=== PATIENT | female | born 1975 | race Caucasian/White ===

== ENCOUNTER 2017-02-01 06:59 | Emergency (ER) | payer MEDICAID ==
[~2017-02-01] VITALS: Ht 162.6 cm; Wt 73.5 kg
[2017-02-01 07:03] VITALS: Ht 162.6 cm; Wt 73.5 kg
[2017-02-01 07:45] LABS: ADD SCAN DIFF NO
[2017-02-01 07:47] LABS: BASOPHILS % 0.4 % (0.0-2.0); EOSINOPHILS # 0.1 10^3/ul (0.0-0.5); EOSINOPHILS % 1.7 % (0.0-7.0); HEMATOCRIT 39.3 % (37.0-47.0); HEMOGLOBIN 13.4 g/dl (12.0-16.0); LYMPHOCYTES # 1.2 10^3/ul (0.8-2.9); LYMPHOCYTES % 24.4 % (15.0-51.0); MEAN CORPUSCULAR HEMOGLOBIN 30.7 pg (29.0-33.0); MEAN CORPUSCULAR HGB CONC 34.1 g/dl (32.0-37.0); MEAN CORPUSCULAR VOLUME 90.1 fl (82.0-101.0); MEAN PLATELET VOLUME 10.9 fl (7.4-10.4); MONOCYTE # 0.4 10^3/ul (0.3-0.9); MONOCYTES % 8.5 % (0.0-11.0); NEUTROPHIL # 3.1 10^3/ul (1.6-7.5); NEUTROPHILS % 64.8 % (39.0-77.0); PLATELET COUNT 163 10^3/UL (140-415); RED BLOOD COUNT 4.36 10^6/ul (4.20-5.40); RED CELL DISTRIBUTION WIDTH 11.9 % (11.5-14.5); WHITE BLOOD COUNT 4.8 10^3/ul (4.8-10.8)
[2017-02-01 07:57] LABS: ADD UMIC NO; URINE BILIRUBIN (Dip) NEGATIVE (NEGATIVE); URINE BLOOD (Dip) NEGATIVE (NEGATIVE); URINE COLOR LT. YELLOW (YELLOW); URINE GLUCOSE (Dip) NEGATIVE (NEGATIVE); URINE KETONES (Dip) NEGATIVE (NEGATIVE); URINE LEUKOCYTE ESTERASE (Dip) NEGATIVE (NEGATIVE); URINE NITRITE (Dip) NEGATIVE (NEGATIVE); URINE TOTAL PROTEIN (Dip) NEGATIVE (NEGATIVE); URINE UROBILINOGEN (Dip) 0.2 E.U./dL (0.1-1.0)
[2017-02-01 08:15] LABS: ALBUMIN 4.9 g/dl (3.3-4.9); ALBUMIN/GLOBULIN RATIO 1.58; BILIRUBIN,INDIRECT 0.5 mg/dl (0-1.1); BILIRUBIN,TOTAL 0.5 mg/dl (0.2-1.3); CALCIUM 10.1 mg/dl (8.4-10.2); CREATININE 0.59 mg/dl (0.44-1.00); POTASSIUM 3.5 mmol/L (3.5-5.1)
--- NOTE | 2017-02-01 08:39 | RADRPT ---
PROCEDURE: US Pelvis. CLINICAL INDICATION: pelvic pain TECHNIQUE: Multiple sonographic images of the pelvis were obtained utilizing a transabdominal and endovaginal technique. The images were reviewed on a PACS workstation. COMPARISON: None. FINDINGS: The uterus is normal in size with a heterogeneous appearance of the myometrium. The uterus measures 7.6 x 4.3 x 5.2 cm. The endometrial stripe is homogeneous in appearance and has the thickness of 10 mm. The ovaries are normal in size and echogenicity. Normal Doppler flow is identified in both ovaries. The right ovary measures 3.0 x 1.7 x 1.4 cm. The left ovary measures 3.4 x 1.8 x 2.1 cm. There is a small amount of free fluid in the cul-de-sac. RPTAT: AA IMPRESSION: Heterogeneous uterus. Small amount of free fluid in the cul-de-sac. .Madhu Salazar MD, MD Date Time Electronically viewed and signed by .Madhu Salazar MD, on 02/01/2017 08:39 .S/
--- NOTE | 2017-02-01 08:48 | ERD ---
ER Documentation Chief Complaint Date/Time DATE: 02/01/17 TIME: 08:48 Chief Complaint AP W/BLOATING RADIATING TO BACK [id number] HPI This is a 41-year-old female presenting to the emergency department complaining of left lower pelvic pain for the past week. Patient rates the pain 9 out of 10 that comes and goes. She states that the pain feels like pressure and she has bloating. She denies any nausea, vomiting, diarrhea, constipation or dysuria. Denies flank pain. She states her last bowel movement was an hour prior to being seen was normal. Past surgeries include appy ROS All systems reviewed and are negative except as per history of present illness. Medications Home Meds Active Scripts Tamsulosin Hcl* (Flomax*) 0.4 Mg Cap.er.24h, 0.4 MG PO QPM, #15 CAP Prov:CARLOTA GARCIA PA-C 02/01/17 Hydrocodone/Acetaminophen ([place] 5-325 Tablet) 1 Each Tablet, 1 TAB PO Q6H Y for PAIN, #30 TAB Prov:CARLOTA GARCIA PA-C 02/01/17 Allergies Allergies: Coded Allergies: Penicillins (Unverified Allergy, Unknown, 02/01/17) PMhx/Soc Medical and Surgical Hx: pt denies Medical Hx, pt denies Surgical Hx Hx Alcohol Use: No Hx Substance Use: No Hx Tobacco Use: No Smoking Status: Never smoker Physical Exam Vitals Vital Signs Date Time Temp Pulse Resp B/P Pulse Ox O2 Delivery O2 Flow Rate FiO2 02/01/17 07:03 97.7 69 20 132/63 100 Physical Exam GENERAL: well-developed/well-nourished, in no apparent distress, non-toxic appearing HENT: NC/AT, moist mucous membranes EYES: Conjunctiva normal NECK: Supple, no lymphadenopathy PULM: CTA bilaterally, no rales, rhonchi, or wheezing heard CV: Normal S1S2, RRR, good capillary refill GI: Soft, non-distended, tender to palpation pelvic region bilaterally Normal bowel sounds, no masses or organomegaly felt on exam No gross peritonitis, no bruits Negative Rovsing, negative Wyatt, negative McBurney's point, Negative CVAT BACK: No masses EXT: No clubbing, cyanosis, or edema NEURO: Alert and Orientated SKIN: Intact, normal turgor PSYCH: Normal mood and mentation Result Diagram: 02/01/17 0735 02/01/17 0735 Results 24 hrs Laboratory Tests Test 02/01/17 07:35 02/01/17 09:20 White Blood Count 4.810^3/ul Red Blood Count 4.3610^6/ul Hemoglobin 13.4g/dl Hematocrit 39.3% Mean Corpuscular Volume 90.1fl Mean Corpuscular Hemoglobin 30.7pg Mean Corpuscular Hemoglobin Concent 34.1g/dl Red Cell Distribution Width 11.9% Platelet Count 46958^3/UL Mean Platelet Volume 10.9fl Neutrophils % 64.8% Lymphocytes % 24.4% Monocytes % 8.5% Eosinophils % 1.7% Basophils % 0.4% Nucleated Red Blood Cells % 0.0/100WBC Neutrophils # 3.110^3/ul Lymphocytes # 1.210^3/ul Monocytes # 0.410^3/ul Eosinophils # 0.110^3/ul Basophils # 0.010^3/ul Nucleated Red Blood Cells # 0.010^3/ul Urine Color LT. YELLOW Urine Clarity CLEAR Urine pH 5.5 Urine Specific [place] <=1.005 Urine Ketones NEGATIVE Urine Nitrite NEGATIVE Urine Bilirubin NEGATIVE Urine Urobilinogen 0.2 E.U./dL Urine Leukocyte Esterase NEGATIVE Urine Hemoglobin NEGATIVE Urine Glucose NEGATIVE% Urine Total Protein NEGATIVE Sodium Level 145mmol/L Potassium Level 3.5mmol/L Chloride Level 108mmol/L Carbon Dioxide Level 29mmol/L Anion Gap 12 Blood Urea Nitrogen 12mg/dl Creatinine 0.59mg/dl Glucose Level 87mg/dl Calcium Level 10.1mg/dl Total Bilirubin 0.5mg/dl Direct Bilirubin 0.00mg/dl Indirect Bilirubin 0.5mg/dl Aspartate Amino Transf (AST/SGOT) 26IU/L Alanine Aminotransferase (ALT/SGPT) 31IU/L Alkaline Phosphatase 66IU/L Total Protein 8.0g/dl Albumin 4.9g/dl Globulin 3.10g/dl Albumin/Globulin Ratio 1.58 Lipase 130U/L Urine Test NEGATIVE Current Medications Medications (Trade) Dose Ordered Sig/Kylie Route PRN Reason Start Time Stop Time Status Last Admin Dose Admin Acetaminophen/ Hydrocodone Bitart ([place] (5/325)) 1 tab ONCE STAT PO 02/01/17 08:52 02/01/17 08:53 DC 02/01/17 09:05 Procedures/MDM This is a 41-year-old female presenting to the emergency department complaining of left lower pelvic pain likely due to nephrolithiasis. There is no evidence of obstructing or infected renal stone, ovarian torsion, ruptured ovarian cyst, diverticulitis, cholecystitis, appendicitis, pyelonephritis and other acute abdominal conditions. Lab work was done in the ED. Lab work was drawn. CBC did not show any evidence of leukocytosis or anemia. CMP did not show any evidence of renal, liver, or electrolyte abnormalities. Lipase was normal. UA did not show any evidence of hemoglobin or urinary tract infection. CT of the abdomen and pelvis was done and showed a nonobstructing left upper pole renal stone that is on 3 mm. Pelvic ultrasound did not show any evidence of cyst or torsion. Patient is appropriate to be followed up with a primary care physician. Patient stable for discharge for home with strict precautions to return to the emergency department for any worsening signs or symptoms including fevers. Prescription for [place] and Flomax is given. Patient understands and agrees with this plan CT abd and pelvis without contrast: Nonobstructing left upper pole renal calculus measuring 3 mm. Otherwise, no acute abdominal pelvic process. Trace pelvic free fluid is likely physiologic. US Pelvis: Heterogeneous uterus. Small amount of free fluid in the cul-de-sac. Departure Diagnosis: Primary Impression: Nephrolithiasis Condition: Stable CARLOTA GARCIA PA-C Feb 01, 2017 08:48
[2017-02-01] MEDS ORDERED: HYDROCODONE/APAP (5/325) TAB PO STA (08:52)
--- NOTE | 2017-02-01 09:58 | RADRPT ---
PROCEDURE: CT KUB. CLINICAL INDICATION: 06/07 pain TECHNIQUE: CT KUB (Renal Stone Survey) without contrast was performed on a GE volumetric [address] scanner. No IV contrast was administered. 3-D coronal reformatted images were obtained from the axial source images. CTDI: 15.1 mGy DLP: 828 mGy-cm COMPARISON: No prior studies are available for comparison. FINDINGS: Limited evaluation of the lung bases are clear. The unenhanced liver, spleen, bilateral adrenal glands, gallbladder, and pancreas are normal-appeari ng. The bilateral kidneys are normal-appearing aside from the presence of a nonobstructing left upper po le renal calculus measuring approximately 3 mm. No hydronephrosis. No ureteral stones. Urinary bladder is grossly normal. The uterus is grossly normal. No suspicious adnexal masses. The small and large bowel are thin-walled and nondilated without evidence for obstruction. The appe ndix is normal. Trace free fluid is present in the cul-de-sac and may be physiologic. No loculated fluid collections free air or mesenteric stranding. No abdominal pelvic adenopathy. Abdominal aorta is incompletely evaluated without intravenous contrast but is normal in caliber. No suspicious osseous lesions. IMPRESSION: Nonobstructing left upper pole renal calculus measuring 3 mm. Otherwise, no acute abdominal pelvic process. Trace pelvic free fluid is likely physiologic. Physician Pro Date Time Electronically viewed and signed by Physician Pro on 02/01/2017 09:58 ML/
[2017-02-01] MEDS ORDERED: HYDR-906 PO (10:02)
[2017-02-01] MEDS ORDERED: TAMS-14 PO (10:02)
== END 2017-02-01 10:11 | disposition home or self-care (01) ==
LOC: FTE 06:59
DX: N20.0 Calculus of kidney (principal)
CPT/HCPCS: 74176; 76830; 76856; 80053; 81003; 83690; 84703; 85025; Z7502; Z7610

== ENCOUNTER 2017-05-01 06:53 | Emergency (ER) | payer MEDICAID ==
[~2017-05-01] VITALS: Ht 162.6 cm; Wt 71.5 kg
[~2017-05-01 06:53] MED LIST: HYDR-906 PO; TAMS-14 PO
[2017-05-01 06:56] VITALS: Ht 162.6 cm; Wt 71.5 kg
[2017-05-01] MEDS ORDERED: LIDOCAINE 1% (MDV) 20 ML INJ SC ONE (09:00)
[2017-05-01] MEDS ORDERED: BACI28.34 TOP (09:15)
--- NOTE | 2017-05-01 09:52 | ERD ---
ER Documentation Chief Complaint Date/Time DATE: 05/01/17 TIME: 09:36 Chief Complaint RT 2ND TOE NAIL INJURY HPI 41-year-old female complaining of nail avulsion to the right second toe. One week ago patient hit her nail on a door. Patient denies any bony injury or pain with ambulation. Patient's nail keeps lifting and is causing discomfort when it catches. Patient has not used medication on the nail. There is been no bleeding. No purulence from the nail. ROS All systems reviewed and are negative except as per history of present illness. Medications Home Meds Active Scripts Bacitracin* (Bacitracin Zinc Oint*) 28.35 Gm Oint, 1 APPLIC TOP BID, #1 TUB APPLI TO Prov:DI HEART PA-C 05/01/17 Tamsulosin Hcl* (Flomax*) 0.4 Mg Cap.er.24h, 0.4 MG PO QPM, #15 CAP Prov:ACRLOTA GARCIA PA-C 02/01/17 Hydrocodone/Acetaminophen ([place] 5-325 Tablet) 1 Each Tablet, 1 TAB PO Q6H Y for PAIN, #30 TAB Prov:CARLOTA GARCIA PA-C 02/01/17 Allergies Allergies: Coded Allergies: Penicillins (Unverified Allergy, Unknown, 02/01/17) PMhx/Soc Medical and Surgical Hx: pt denies Medical Hx, pt denies Surgical Hx Hx Alcohol Use: No Hx Substance Use: No Hx Tobacco Use: No Smoking Status: Never smoker Physical Exam Vitals Vital Signs Date Time Temp Pulse Resp B/P Pulse Ox O2 Delivery O2 Flow Rate FiO2 05/01/17 06:56 98.1 73 18 133/72 98 Physical Exam GENERAL: The patient is well-appearing, well-nourished, in no acute distress CHEST: Clear to auscultation bilaterally. There are no rales, wheezes or rhonchi. HEART: Regular rate and rhythm. No murmurs, clicks, rubs or gallops. No S3 or S4. EXTREMITIES: right 2nd toe nail avulsed with small attachment to the proximal end. No open wounds. No bleeding. NEUROLOGIC: Alert and oriented. Cranial nerves II through XII intact. Motor strength in all 4 extremities with 5 out of 5 strength. Sensation grossly intact. Normal speech and gait. Babinski negative. DTR 2+ throughout. SKIN: There is no apparent rash or petechiae. The skin is warm and dry. Results 24 hrs Current Medications Medications (Trade) Dose Ordered Sig/Kylie Route PRN Reason Start Time Stop Time Status Last Admin Dose Admin Lidocaine (Xylocaine 1% (Mdv) 20 ml) 20 ml ONCE ONCE SC 05/01/17 09:00 05/01/17 09:01 DC Procedures/MDM ER Course: 3 cc plain lidocaine injected with digital block. 2nd toenail removed. No complication MDM: 41 yr old female complaining of loose toenail. I have low suspicion for acute fracture or dislocation. Low suspicion for infectious process. Low suspicion for retained foreign body. Loose toenail was removed without complication. Patient is recommended to clean with soap and water and apply bacitracin ointment. She was told symptoms change or worsen to return to ER. Departure Diagnosis: Primary Impression: Nail avulsion of toe Condition: Stable Patient Instructions: Nail Avulsion, Complete Referrals: [facility] YOU HAVE RECEIVED A MEDICAL SCREENING EXAM AND THE RESULTS INDICATE THAT YOU DO NOT HAVE A CONDITION THAT REQUIRES URGENT TREATMENT IN THE EMERGENCY DEPARTMENT. FURTHER EVALUATION AND TREATMENT OF YOUR CONDITION CAN WAIT UNTIL YOU ARE SEEN IN YOUR DOCTORS OFFICE WITHIN THE NEXT 1-2 DAYS. IT IS YOUR RESPONSIBILITY TO MAKE AN APPOINTMENT FOR FOLOW-UP CARE. IF YOU HAVE A PRIMARY DOCTOR --you should call your primary doctor and schedule an appointment IF YOU DO NOT HAVE A PRIMARY DOCTOR YOU CAN CALL OUR PHYSICIAN REFERRAL HOTLINE AT IF YOU CAN NOT AFFORD TO SEE A PHYSICIAN YOU CAN CHOSE FROM THE FOLLOWING [facility] [id number] [facility] [address] [facility] [address] [facility] [address] [facility]. [facility] [address] [facility]. [facility]. [address] Additional Instructions: FOLLOW UP WITH YOUR PRIMARY CARE PHYSICIAN TOMORROW.Return to this facility if you are not improving as expected. DI HEART PA-C May 01, 2017 09:52
== END 2017-05-01 10:04 | disposition home or self-care (01) ==
LOC: FTE 06:53
DX: S91.204A Unspecified open wound of right lesser toe(s) with damage to nail, initial encounter (principal); W22.8XXA Striking against or struck by other objects, initial encounter; Y92.9 Unspecified place or not applicable
CPT/HCPCS: 11730; Z7502; Z7610

== ENCOUNTER 2018-07-22 20:24 | Emergency (ER) | END 2018-07-22 21:49 | disposition home or self-care (01) ==